=== PATIENT | female | born 1995 | race Caucasian/White ===

== ENCOUNTER → 2021-06-07 | Outpatient (CLI) | payer OTHER | LOC: M.ULTRA 06-03 08:00 | PROVIDERS: ATTEND Family Medicine | DX: K80.80 Other cholelithiasis without obstruction (principal); R10.11 Right upper quadrant pain ==

== ENCOUNTER → 2021-07-11 | Day surgery (SDC) | payer OTHER ==
[~2021-07-11] MED LIST: ABILIFY 5 MG TAB5 M1 PO; IBUPROFEN 800800 M1 PO; OXYCODONE HCL 55 MG PO
[2021-07-11 12:05] LABS: HEMATOCRIT 43.4 % (37.0-47.0); HEMOGLOBIN 14.4 gm/dL (12.0-15.0)
--- NOTE | 2021-07-14 11:07 | PATH ---
[address] [address] PATHOLOGY RPT PROCEDURE Name: CLEMENT SUAREZ Room: [facility]#: [id number] Admission: 07/11/21 Date of : 89 Discharge: Report #: [id number] Path Case #: [id number] [facility] Accession Number: [id number] . 01 Material submitted: . gallbladder - GALLBLADDER WITH CONTENTS . 01 Clinical history: . LAPAROSCOPIC CHOLECYSTECTOMY WITH GRAMS GALLSTONES . 02 Diagnosis: Gallbladder, excision: - Lithiasis. - Chronic cholecystitis, mild; negative for malignancy. - Cholesterolosis. (MLK:pit; 07/13/2021) QTP 07/13/2021 1438 Local . 02 Electronically signed: . Imelda Landry MD, Pathologist NPI- [id number] . 01 Gross description: . Fixative: Formalin Labeled: Gallbladder w/ contents Specimen received: Previously disrupted with 2 transmural defects (0.5 x 0.2 cm and 1.6 x 0.7 cm) at the dome. Dimensions: 5.7 x 2.9 x 2.8 cm Lymph node: None Serosa: Wooldridge-brito and glistening Calculi: The specimen contains a brown roughened cholelith (3.2 x 2.7 x 2.4 cm) Mucosa: [place]ridge-crouch, velvety and focally trabecular without lovell stippling Average wall thickness: Ranges from 0.2 cm to 0.7 cm Abnormalities: The lumen displays a central stricture (2.0 x 1.2 cm) that focally narrows the lumen down to approximately 1.0 cm in diameter A1: Gallbladder, represented to include sections from the stricture ([place]; 07/12/2021) DKA/DKA 07/12/2021 1106 Local . 02 Pathologist provided ICD-10: K80.10 . 02 CPT . 437105 Specimen Comment: A courtesy copy of this report has been sent to [phone], [phone], [place] [address] PATHOLOGY RPT PROCEDURE Name: CLEMENT SUAREZ Room: [facility]#: [id number] Admission: 07/11/21 Date of : [birth year] Discharge: Report #: [id number] Path Case #: [id number] Specimen Comment: [id number] Specimen Comment: Report sent to / DR WOODALL Specimen Comment: A duplicate report has been generated due to demographic updates. Performed at: 01 [facility] [address] [id number] MD Mehul Zendejas MD Phone: [phone] Performed at: 02 [facility] [address] [id number] MD Rafael Corey MD Phone: [phone]
--- NOTE | 2021-07-14 21:02 | OP ---
[address] [address] OPERATIVE REPORT Name: CLEMENT SUAREZ Room: [facility]#: [id number] Admission: 07/11/21 Attend Phys: Patrick Kuhn Discharge: Date of : [birth year] Report #: [id number] THIS REPORT FOR: cc: Junior Friedman, Efrain Valero DO ~ cc: Junior Friedman DO DATE OF SURGERY: 07/11/2021 PREOPERATIVE DIAGNOSIS: Cholelithiasis. POSTOPERATIVE DIAGNOSES: Chronic cholecystitis and cholelithiasis. PROCEDURE PERFORMED: Laparoscopic cholecystectomy with intraoperative cholangiography. SURGEON: Efrain Webber DO CO-SURGEON: Galindo Snow DO, PGY5 CANAL EQUIPMENT MECHANIC: None. ANESTHESIA: General and regional. SPECIMENS: Gallbladder. ESTIMATED BLOOD LOSS: 20 mL COMPLICATIONS: None. FINDINGS: Chronic cholecystitis. Cholangiogram revealed patent cystic duct with normal-appearing common bile duct, common hepatic duct, right and left hepatic ducts with free flow of contrast into the duodenum without evidence of choledocholithiasis or biliary obstruction. HISTORY OF PRESENT ILLNESS: The patient is a 25-year-old female who presented to the office complaining of upper abdominal pain. Workup did reveal cholelithiasis and we discussed laparoscopic cholecystectomy. Consent was obtained after risks, benefits and alternatives were discussed at length. DESCRIPTION OF PROCEDURE: The patient was taken to the operating room and placed in the supine position. SCDs applied to bilateral lower extremities, safety belt was used to secure the patient to the bed. Two grams of Ancef were given for surgical prophylaxis. General endotracheal anesthesia was administered by the anesthesia team without any complication. The patient's [address] [address] OPERATIVE REPORT Name: CLEMENT SUAREZ Room: [facility]#: [id number] Admission: 07/11/21 Attend Phys: Patrick Kuhn Discharge: Date of : 89 Report #: [id number] abdomen was prepped and draped in the standard sterile fashion. Timeout was performed to confirm the patient and procedure. An 11 blade scalpel was used to make a transverse incision just below the umbilicus. Electrocautery was used for hemostasis and to dissect down to the level of fascia. Once fascia was encountered, it was grasped between two Kochers and the fascia was scored with electrocautery. Hemostat was used to bluntly enter into the peritoneum. Two stitches were placed on either side of the fascia. A 12 mm Briana trocar was inserted into the abdomen. Insufflation was initiated. Intraabdominal contents were inspected. Three more trocars, one subxiphoid and two in the right upper quadrant were placed under direct visualization. The liver was retracted cephalad and the gallbladder was visualized and appeared to be slightly edematous. Gallbladder was then grasped and elevated. Electrocautery was used to score the visceral peritoneum at the level of Zoey's pouch and peritoneum was dissected laterally and then medially. Blunt dissection was used to circumferentially isolate the anterior structure that did appear to be the cystic duct. Just medial to this, we dissected through the fatty tissue to help isolate the cystic artery, both structures were seen going up into the gallbladder. Just lateral to the cystic artery, appeared to be another structure going up into the gallbladder. Due to our uncertainty of this anatomy, we elected to proceed with intraoperative cholangiogram. A Santiago catheter was placed across Zoey's pouch, taking care to occlude both the cystic duct and this posterior structure of uncertain anatomy. Cholangiogram was then carried out and contrast could be seen flowing through the cystic duct into the common bile duct and into the duodenum without evidence of obstruction. There was no accessory duct flowing into the common bile duct or common hepatic duct. We then terminated our cholangiogram. The Santiago clamp was removed from the abdomen and the cystic duct was clipped twice proximally, once distally. Cystic artery was clipped once distally, once proximally and this posterior structure, that was suspected to be an accessory artery, was clipped doubly. All 3 structures were cut. Gallbladder was then carefully dissected off the bed of the liver and placed in laparoscopic EndoCatch bag. Liver bed was inspected and hemostasis was ensured with electrocautery. Right upper quadrant was irrigated and all fluid was suctioned out. Insufflation was let down and all trocars were removed under direct visualization. Gallbladder and its contents were removed from the infraumbilical trocar site. There was one very large stone within the gallbladder. Gallbladder was sent for pathologic evaluation. Infraumbilical fascia was reapproximated with one stitch of 0 Vicryl in a [id number]-woivh fashion. All skin incisions were reapproximated with 4-0 Monocryl in subcuticular fashion. Sterile skin glue was applied. All needle, instrument [address] [address] OPERATIVE REPORT Name: CLEMENT SUAREZ Room: [facility]#: [id number] Admission: 07/11/21 Attend Phys: Patrick Kuhn Discharge: Date of : 89 Report #: [id number] and sponge counts correct x 2 at the end of the case. The patient was awoken from general anesthesia and transferred to PACU in stable condition. <ELECTRONICALLY SIGNED> By: Efrain Webber DO 07/14/21 2102 1342 [id number] Webber DO /nt
== END | disposition home or self-care (01) ==
LOC: M.SUR 10:54
PROVIDERS: ATTEND Surgery
DX: K80.10 Calculus of gallbladder with chronic cholecystitis without obstruction (principal); R10.11 Right upper quadrant pain; Z20.822 Contact with and (suspected) exposure to COVID-19